=== PATIENT | male | born 1955 | race Caucasian/White ===

== ENCOUNTER 2020-03-26 08:18 | Day surgery (SDC) | payer MEDICARE, OTHER ==
[~2020-03-26] VITALS: Ht 180.3 cm; Wt 97.6 kg
[~2020-03-26 08:18] MED LIST: ATOR40TA; CEPH500 PO; CIPR500 PO; FINA5; FINA5 PO; HYDACE5 PO; IBUP200 PO; LEVFLO500 PO; METO10 PO; METO25ER; OMEP20ER; OXYACE5T PO; PANT40 PO; PROM25 PO; RXOXYACE PO; Ranitidine HCl150 M1 PO; SULTRIDS PO; TAMS.4ER PO; TRIA80TC
[2020-03-26] MEDS ORDERED: LOSA25 (08:43)
[2020-03-26] MEDS ORDERED: Doxycycline Mo100 M1 (08:44)
--- NOTE | 2020-03-26 13:29 | NUR ---
03/26/20 1329 Carlene Roque UPON DISCHARGE PT TAKEN TO THE STEP DOWN UNIT TO WAIT FOR HIS RIDE. PT STATED "MY RIDE DOES NOT HAVE A PHONE AND WILL COME GET ME FROM [email or web address] WHEN HE'S DONE EATING." RN PROVIDED SNACKS AND BEVERAGES TO PT WHILE HE WAITS FOR HIS RIDE. AFTER APPROXIMATELY 1 HOUR PT STATES HE WOULD LIKE TO WALK TO [employer] OR DRIVE HOME. RN OFFERRED TO CALL ADDITIONAL RIDE OPTIONS OR HELP HIM SET UP A TAXI. PT STATED "I DO NOT WANT A TAXI BECAUSE THEN I WOULD HAVE TO COME BACK AND GET MY TRUCK." RN RESTATED THAT THE PATIENT WOULD BE 'DRIVING UNDER THE INFLUENCE' UNTIL TOMORROW AND THAT IT WOULD NOT BE SAFE FOR HIM TO DRIVE HOME. PT WAITED UNTIL 1315 THEN SIGNED THE AMA FORM WITH DR MALDONADO. PT STATED THAT HE UNDERSTOOD THE RISK OF LEAVING AMA. PT WALKED OUT OF THE SURGERY CENTER AT 1318 AND WALKED TOWARDS THE ER AT [facility].
== END 2020-03-26 10:42 | disposition home or self-care (01) ==
LOC: ORSCSDS 08:18
PROVIDERS: Internal Medicine Gastroenterology
PROC: 0DBK8ZX Excision of Ascending Colon, Via Natural or Artificial Opening Endoscopic, Diagnostic (ICD-10-PCS; principal; 2020-03-26 09:45)
PROC: 0DB58ZX Excision of Esophagus, Via Natural or Artificial Opening Endoscopic, Diagnostic (ICD-10-PCS; principal; 2020-03-26 09:45)
PROC: 0DB68ZX Excision of Stomach, Via Natural or Artificial Opening Endoscopic, Diagnostic (ICD-10-PCS; principal; 2020-03-26 09:45)
DX: K21.9 Gastro-esophageal reflux disease without esophagitis (principal); K92.1 Melena; Z86.010 Personal history of colon polyps; D12.2 Benign neoplasm of ascending colon; K57.30 Diverticulosis of large intestine without perforation or abscess without bleeding; K64.1 Second degree hemorrhoids; J44.9 Chronic obstructive pulmonary disease, unspecified; I10 Essential (primary) hypertension; E78.5 Hyperlipidemia, unspecified; F17.210 Nicotine dependence, cigarettes, uncomplicated; Z79.899 Other long term (current) drug therapy
CPT/HCPCS: 88305; 88342; J2704; J7120

== ENCOUNTER 2020-05-11 10:59 | Day surgery (SDC) | payer MEDICARE, OTHER ==
[~2020-05-11] VITALS: Ht 177.8 cm; Wt 81.8 kg
[~2020-05-11 10:59] MED LIST changes: +Crestor40 MG PO; +Doxycycline Mo100 M1 PO; +LOSA25 PO
--- NOTE | 2020-05-11 11:49 | NUR ---
Ambulatory in Day Surgery History, Chart, Medications and Allergies reviewed before start of procedure. Pre-Op teaching done. Pt verbalizes understanding. Patient confirms NPO status and agrees with scheduled surgery. PT DENIES ALLERGIES, ALLERGIES REMOVED FROM LIST PER REQUEST.
--- NOTE | 2020-05-11 14:48 | NUR ---
05/11/20 1448 Edward Lopez CIRCULATING NURSE AND SURGEON ATTEMPTED TO INSERT CELESTE CATH WITHOUT SUCCESS. SURGEON DECIDED THAT SINCE WE WERE UNABLE TO INSERT CATH THAT HE WOULD ABORT PROCEDURE.MD WILL DISCUSS WITH PT IN RECOVERY ROOM.
--- NOTE | 2020-05-11 15:17 | NUR ---
PT ARRIVES TO STEP FROM PACU. PT AWAKE AND ALERT. STS HE NEEDS TO USE THE RESTROOM. AFTER VITAL SIGNS ARE COMPLETED. PT SITS UP TO THE SIDE OF THE GURNEY. PT STS HE FEELS STEADY. PT AMBULATES INDPENDENTLY TO THE RESTROOM AND IS ABLE TO VOID. STS A COUPLE OF BLOOD CLOTS AND THEN HE URINATED FREELY. PT PROVIDED CRACKERS AND FLUIDS. TOLERATES WELL.
--- NOTE | 2020-05-11 15:54 | NUR ---
PT STOOD AND AMBULATED INDEPENDENTLY. PT ABLE TO DRESS SELF INDPENDENTLY. FRIEND WAS CALLED TO DIRECTOR PHARMACY SERVICES PT. Ambulatory in Day Surgery Discharge instructions reviewed with patient. Patient verbalizes understanding. Copy given to patient to take home. Patient States Post-Procedure ride home has been arranged.
== END 2020-05-11 23:44 | disposition home or self-care (01) ==
LOC: ORSCMMR 10:59 → ORD 12:30 → ORSCMMR 23:44
PROC: 0YQA0ZZ Repair Bilateral Inguinal Region, Open Approach (ICD-10-PCS; principal; 2020-05-11)
DX: K40.20 Bilateral inguinal hernia, without obstruction or gangrene, not specified as recurrent (principal); Z53.9 Procedure and treatment not carried out, unspecified reason
CPT/HCPCS: J0690; J1100; J2250; J2405; J2704; J2710; J3010; J7120

== ENCOUNTER 2020-06-22 11:07 | Day surgery (SDC) | payer MEDICARE, OTHER ==
[~2020-06-22] VITALS: Ht 177.8 cm; Wt 81.0 kg
[2020-06-22] MEDS ORDERED: SULFACETAMIDE SODIUM (11:42)
--- NOTE | 2020-06-22 11:44 | NUR ---
Ambulatory in Day Surgery History, Chart, Medications and Allergies reviewed before start of procedure. Lungs clear T/O to Auscultation. Patient confirms NPO status and agrees with scheduled surgery. Patient States Post-Procedure ride home has been arranged.
[2020-06-22 12:02] LABS: Anion Gap 5 mmol/L (6-16); Blood Urea Nitrogen 12 mg/dL (8-24); Bun/Creatinine Ratio 12.7 (12.0-20.0); CO2, Blood 27 mmol/L (21-32); Calcium, Blood 9.6 mg/dL (8.5-10.1); Chloride, Blood 109 mmol/L (98-108); Creatinine, Blood 0.94 mg/dL (0.60-1.20); Glomerular Filtration Rate >60 (60-); Glucose, Blood 96 mg/dL (70-99); Sodium, Blood 141 mmol/L (136-145)
--- NOTE | 2020-06-22 16:17 | NUR ---
PT MEDICATED c NORCO 1 TAB PO, FOR PAIN /. EATS AND DRINKS s DIFFICULTY. RIDE CALLED. INCISIONAL SITES X 3, CLEAN, DRY AND INTACT. CELESTE CATH IN PLACE, DRAINING s DIFFICULTY.
--- NOTE | 2020-06-22 16:56 | NUR ---
PT REPORTS CONTINUED PAIN p NORCO 1 TAB. MEDICATED c ADDITIOAL NORCO 1 TAB. PTS CATH BAG CHANGED TO LEG BAG PER REQUEST. INCISIONAL SITES CONTINUES TO BE CLEAN, DRY AND s DRAINAGE. GIVEN RX AND DC INSTRUCTIONS. PT VERBALIZES AN UNDERSTANDING. NO ADDITIONAL QUESTIONS. IV DC'D X 2, CATH INTACT AND PRESSURE DRESSING APPLIED. PT ASSISTED c DRESSING. + SCROTAL SUPPORT. OTD IN NAD VIA WC. SAFE RIDE HOME, [place], AWAITING HIS ARRIVAL.
== END 2020-06-22 22:40 | disposition home or self-care (01) ==
LOC: ORSCMMR 11:07 → ORD 12:30 → ORSCMMR 22:40
PROVIDERS: Surgery
PROC: 8E0W0CZ Robotic Assisted Procedure of Trunk Region, Open Approach (ICD-10-PCS; principal; 2020-06-22 12:30)
PROC: 0YUA0JZ Supplement Bilateral Inguinal Region with Synthetic Substitute, Open Approach (ICD-10-PCS; principal; 2020-06-22 12:30)
DX: K40.20 Bilateral inguinal hernia, without obstruction or gangrene, not specified as recurrent (principal); I10 Essential (primary) hypertension; J44.9 Chronic obstructive pulmonary disease, unspecified; K21.9 Gastro-esophageal reflux disease without esophagitis; F17.210 Nicotine dependence, cigarettes, uncomplicated; Z79.899 Other long term (current) drug therapy
CPT/HCPCS: 49505; S2900; 80048; A9270; C1781; J0690; J2250; J2370; J2704; J3010; J7120

== ENCOUNTER → 2022-12-02 | Outpatient (CLI) | payer MEDICARE, OTHER ==
[~2022-12-02] MED LIST changes: +SULFACETAMIDE SODIUM
[2022-12-04 10:16] LABS: Stool Occult Bld Immuno 1 Negative (NEGATIVE)
== END | disposition home or self-care (01) ==
LOC: LAB 11:00 → LAB SHORT 11:00
PROVIDERS: Nurse Practitioner Family
DX: Z09 Encounter for follow-up examination after completed treatment for conditions other than malignant neoplasm (principal); Z87.19 Personal history of other diseases of the digestive system
CPT/HCPCS: G0328

== ENCOUNTER 2023-11-02 10:31 | Emergency (ER) | payer MEDICARE, OTHER ==
[~2023-11-02] VITALS: Ht 177.8 cm; Wt 68.0 kg
[2023-11-02 10:59] VITALS: BP 176/79
[2023-11-02 10:59] LABS: Source, Urine Voided
[2023-11-02 11:05] LABS: Bilirubin, Urine Neg (Neg); Blood, Urine 5+ (Neg); Glucose Qualitative, Urine Neg (Neg); Ketones, Urine Neg (Neg); Leukocyte Esterase, Urine 1+ (Neg); Nitrite, Urine Neg (Neg); Protein, Urine 1+ (Neg); Urobilinogen, Urine NORM (Normal)
[2023-11-02 11:18] LABS: Appearance, Urine Hazy (Clear); Color, Urine Yellow (P-Yellow)
[2023-11-02 11:20] LABS: Bacteria Rare /hpf; Red Blood Cells, Urine 25-50 /hpf (0-2); Squamous Epithelial Cells Rare /hpf (Few)
[2023-11-02 11:22] LABS: BASOPHILS ABSOLUTE AUTO 0.08 K/mm3 (0.00-0.23); BASOPHILS PERCENT AUTO 1 % (0-2); EOSINOPHILS ABSOLUTE AUTO 0.17 K/mm3 (0.00-0.68); EOSINOPHILS PERCENT AUTO 2 % (0-6); Hematocrit 45.6 % (37.0-53.0); Hemoglobin 15.4 g/dL (13.5-17.5); IMMATURE GRAN ABSOLUTE AUTO 0.03 K/mm3 (0.00-0.10); IMMATURE GRAN PERCENT AUTO 0 % (0-1); LYMPHOCYTES ABSOLUTE AUTO 1.95 K/mm3 (0.84-5.20); LYMPHOCYTES PERCENT AUTO 22 % (21-46); MONOCYTES ABSOLUTE AUTO 0.69 K/mm3 (0.16-1.47); MONOCYTES PERCENT AUTO 8 % (4-13); Mean Corpuscular HGB 29.1 pg (26.0-34.0); Mean Corpuscular HGB Conc 33.8 g/dL (31.5-36.5); Mean Corpuscular Volume 86 fL (80-100); Mean Platelet Volume 11.3 fL (9.1-12.4); NEUTROPHILS PERCENT AUTO 67 % (41-73); Platelet Count 207 K/mm3 (150-400); RDW Coefficient Variation 13.1 % (11.7-14.2); White Blood Cell Count 8.92 K/mm3 (4.00-11.30)
[2023-11-02 11:43] LABS: Albumin/Globulin Ratio 1.1 (0.8-1.8); Bilirubin, Total 0.6 mg/dL (0.1-1.0); Bun/Creatinine Ratio 18.4 (12.0-20.0); Calcium, Blood 8.7 mg/dL (8.5-10.1); Creatinine, Blood 0.81 mg/dL (0.60-1.20); Globulin, Blood 3.7 g/dL (2.2-4.0); Potassium, Blood 4.3 mmol/L (3.5-5.5); Total Protein, Blood 7.7 g/dL (6.4-8.2)
== END 2023-11-02 13:48 | disposition home or self-care (01) ==
LOC: ER 10:31
PROVIDERS: Emergency Medicine
DX: R31.9 Hematuria, unspecified (principal); I10 Essential (primary) hypertension; E78.5 Hyperlipidemia, unspecified; F17.210 Nicotine dependence, cigarettes, uncomplicated; Z79.899 Other long term (current) drug therapy; Z88.2 Allergy status to sulfonamides; Z88.1 Allergy status to other antibiotic agents; Z88.8 Allergy status to other drugs, medicaments and biological substances
CPT/HCPCS: 76770; 80053; 81001; 85025; 87086; 99284-25